=== PATIENT | female | born 1990 | race Caucasian/White ===

== ENCOUNTER 2018-08-13 05:22 | Emergency (ER) | payer MEDICAID, OTHER ==
[~2018-08-13] VITALS: Ht 165.1 cm; Wt 54.5 kg
[~2018-08-13 05:22] MED LIST: TRUVTAB PO
[2018-08-13 05:33] VITALS: BP 102/67
== END 2018-08-13 06:01 | disposition home or self-care (01) ==
LOC: M ED 05:22
DX: T18.8XXA Foreign body in other parts of alimentary tract, initial encounter (principal); X58.XXXA Exposure to other specified factors, initial encounter; Y92.89 Other specified places as the place of occurrence of the external cause; F17.210 Nicotine dependence, cigarettes, uncomplicated

== ENCOUNTER → 2019-08-21 | Outpatient (REF) | payer OTHER ==
[2019-08-21 19:20] LABS: HEMATOCRIT 39.2 % (36.0-47.0); HEMOGLOBIN 13.1 g/dl (12.0-15.5); MEAN CORPUSCULAR HGB CONC 33.4 g/dl (32.0-36.5); MEAN CORPUSCULAR VOLUME 89.7 fl (80.0-96.0); PLATELET COUNT, AUTOMATED 334 10^3/uL (150-450); RED BLOOD COUNT 4.37 10^6/uL (4.00-5.40); WHITE BLOOD COUNT 6.7 10^3/uL (4.0-10.0)
[2019-08-21 19:50] LABS: HEMOGLOBIN A1c 5.5 %
[2019-08-21 19:53] LABS: CHLAMYDIA DNA AMPLIFICATION NEGATIVE (NEGATIVE); GC DNA AMPLIFICATION POSITIVE (NEGATIVE)
[2019-08-21 20:03] LABS: ALBUMIN 3.7 GM/DL (3.2-5.2); ALT/SGPT 31 U/L (12-78); BILIRUBIN,TOTAL 0.2 MG/DL (0.2-1.0); BLOOD UREA NITROGEN 10 MG/DL (7-18); CARBON DIOXIDE LEVEL 29 MEQ/L (21-32); CHLORIDE LEVEL 108 MEQ/L (98-107); CHOLESTEROL LEVEL 109 MG/DL (<200); CHOLESTEROL RISK RATIO 2.794 (<5); CREATININE FOR GFR 0.73 MG/DL (0.55-1.30); FREE T4 0.97 NG/DL (0.76-1.46); GLOMERULAR FILTRATION RATE > 60.0 (>60); GLUCOSE, FASTING 81 MG/DL (70-100); HCG, SERUM QUANTITATIVE 20 MIU/ML; HDL CHOLESTEROL 39 MG/DL (>40); LDL CHOLESTEROL 59 MG/DL (<100); NON-HDL-C 70 MG/DL; POTASSIUM SERUM 4.1 MEQ/L (3.5-5.1); SODIUM LEVEL 139 MEQ/L (136-145); THYROID STIMULATING HORMONE 0.795 uIU/ML (0.358-3.740); TRIGLYCERIDES LEVEL 57 MG/DL (<150)
[2019-08-21 21:19] LABS: HCG, SERUM QUALITATIVE POSITIVE (NEGATIVE)
[2019-08-23 09:21] LABS: HIV 1&2 SCREEN CENTAUR NEGATIVE (NEGATIVE)
== END ==
LOC: M SFHCPLAZ 14:34
PROVIDERS: ATTEND Physician Assistant
DX: Z32.00 Encounter for pregnancy test, result unknown (principal); Z20.2 Contact with and (suspected) exposure to infections with a predominantly sexual mode of transmission; Z00.00 Encounter for general adult medical examination without abnormal findings; Z13.29 Encounter for screening for other suspected endocrine disorder; Z13.220 Encounter for screening for lipoid disorders; F17.210 Nicotine dependence, cigarettes, uncomplicated; Z13.1 Encounter for screening for diabetes mellitus

== ENCOUNTER → 2019-08-29 | Outpatient (REF) | payer OTHER | LOC: M SFHCPLAZ 13:26 | PROVIDERS: ATTEND Physician Assistant | DX: Z32.01 Encounter for pregnancy test, result positive (principal) ==

== ENCOUNTER → 2020-06-10 | Outpatient (REF) | payer OTHER | LOC: M WUC 09:35 | PROVIDERS: ATTEND Physician Assistant | DX: J02.9 Acute pharyngitis, unspecified (principal) ==

== ENCOUNTER 2021-07-24 18:20 | Inpatient (IN) | payer OTHER ==
[~2021-07-24] VITALS: Ht 160 cm; Wt 55.8 kg
[~2021-07-24 18:20] MED LIST changes: +EMTR1TAB16 PO; -TRUVTAB PO
[2021-07-24] MEDS ORDERED: CITA20TA6 (18:26)
[2021-07-24] MEDS ORDERED: QUET100T2 (18:26)
[2021-07-24] MEDS ORDERED: BUPR1SUB5 (18:26)
[2021-07-24] MEDS ORDERED: ETHY1TAB6 (18:26)
[2021-07-24 19:37] LABS: BASO % 0.4 % (0.0-1.0); EOS % 0.3 % (0.0-3.0); HEMATOCRIT 38.7 % (36.0-47.0); HEMOGLOBIN 13.4 g/dl (12.0-15.5); LYMPH # 1.7 10^3/uL (1.5-5.0); LYMPH % 15.6 % (24.0-44.0); MEAN CORPUSCULAR HEMOGLOBIN 30.5 pg (27.0-33.0); MEAN CORPUSCULAR HGB CONC 34.6 g/dl (32.0-36.5); MEAN CORPUSCULAR VOLUME 88.2 fl (80.0-96.0); MONO # 0.5 10^3/uL (0.0-0.8); MONO % 4.4 % (2.0-8.0); NEUTROPHILS # 8.4 10^3/uL (1.5-8.5); NEUTROPHILS % 78.9 % (36.0-66.0); PLATELET COUNT, AUTOMATED 301 10^3/uL (150-450); RED BLOOD COUNT 4.39 10^6/uL (4.00-5.40); WHITE BLOOD COUNT 10.6 10^3/uL (4.0-10.0)
[2021-07-24 20:06] LABS: HCG, SERUM QUALITATIVE NEGATIVE (NEGATIVE)
[2021-07-24 20:07] LABS: ALBUMIN 3.6 GM/DL (3.2-5.2); ALT/SGPT 42 U/L (12-78); AMYLASE 34 U/L (25-115); BILIRUBIN,DIRECT 0.5 MG/DL (0.0-0.2); BILIRUBIN,TOTAL 0.9 MG/DL (0.2-1.0); BLOOD UREA NITROGEN 10 MG/DL (7-18); CARBON DIOXIDE LEVEL 27 MEQ/L (21-32); CHLORIDE LEVEL 107 MEQ/L (98-107); CREATININE FOR GFR 0.78 MG/DL (0.55-1.30); GLOMERULAR FILTRATION RATE > 60.0 (>60); GLUCOSE, FASTING 104 MG/DL (70-100); LIPASE 74 U/L (73-393); POTASSIUM SERUM 4.1 MEQ/L (3.5-5.1); SODIUM LEVEL 141 MEQ/L (136-145); TOTAL PROTEIN 7.2 GM/DL (6.4-8.2)
[2021-07-24] MEDS ORDERED: PANTOPRAZOLE 40MG VIAL IV ONE (21:30)
[2021-07-24] MEDS ORDERED: GI COCKTAIL 50ML BTL(HYOSCYAMINE/MAALOX/LIDOCAINE VISCOUS)(1:3:1) PO ONE (21:30)
[2021-07-24] MEDS ORDERED: SUCRALFATE 1 GM TAB PO ONE (21:30)
[2021-07-24] MEDS ORDERED: ISOVUE-370 76% 100ML VIAL As Ordered ONE (21:35)
[2021-07-24] MEDS ORDERED: ONDANSETRON 4MG/2ML VIAL IV ONE (21:50)
[2021-07-24] MEDS ORDERED: KETOROLAC 30 MG/ML 1ML VIAL IV ONE (23:00)
[2021-07-25] MEDS ORDERED: PIPERACILLIN/TAZOBACTAM SOD 3.375 GM in D5W MINI-BAG PLUS 50 ML IV ONE ×2
[2021-07-25 00:40] LABS: RSV AMPLIFICATION NEGATIVE (NEGATIVE)
[2021-07-25] MEDS ORDERED: MAALOX 30 ML SUSP *UDC PO PRN (00:40)
[2021-07-25] MEDS ORDERED: MORPHINE 2 MG/ML 1ML VIAL IV PRN (00:40)
[2021-07-25] MEDS ORDERED: ACETAMINOPHEN TAB 650MG DOSE (2X325MG) PO PRN (00:40)
[2021-07-25] MEDS ORDERED: MOM 30ML SUSPENSION UDC PO PRN (00:40)
[2021-07-25] MEDS: NS 1,000 ML IV SCH ×3 (01:35→18:38)
[2021-07-25] MEDS ORDERED: QUET100T2 PO (01:40)
[2021-07-25] MEDS ORDERED: CITA20TA7 PO (01:40)
[2021-07-25] MEDS ORDERED: SUBO8MIS SL (01:40)
[2021-07-25] MEDS ORDERED: HOME MED LIST COMPLETE! XX SCH (01:40)
[2021-07-25 01:53] LABS: BASO % 0.4 % (0.0-1.0); EOS % 0.3 % (0.0-3.0); HEMATOCRIT 34.5 % (36.0-47.0); HEMOGLOBIN 11.9 g/dl (12.0-15.5); LYMPH # 1.7 10^3/uL (1.5-5.0); LYMPH % 17.7 % (24.0-44.0); MEAN CORPUSCULAR HEMOGLOBIN 30.4 pg (27.0-33.0); MEAN CORPUSCULAR HGB CONC 34.5 g/dl (32.0-36.5); MEAN CORPUSCULAR VOLUME 88.2 fl (80.0-96.0); MONO # 0.6 10^3/uL (0.0-0.8); MONO % 6.4 % (2.0-8.0); NEUTROPHILS # 7.4 10^3/uL (1.5-8.5); NEUTROPHILS % 74.9 % (36.0-66.0); PLATELET COUNT, AUTOMATED 235 10^3/uL (150-450); RED BLOOD COUNT 3.91 10^6/uL (4.00-5.40); WHITE BLOOD COUNT 9.8 10^3/uL (4.0-10.0)
[2021-07-25] MEDS: NORCO, ANEXSIA 5/325MG TABLET (HYDROcodone/ACETAMINOPHEN) PO PRN ×4 (02:27→18:38)
[2021-07-25 02:30] LABS: ALBUMIN 3.1 GM/DL (3.2-5.2); ALT/SGPT 212 U/L (12-78); BILIRUBIN,DIRECT 0.9 MG/DL (0.0-0.2); BILIRUBIN,TOTAL 2.1 MG/DL (0.2-1.0); BLOOD UREA NITROGEN 9 MG/DL (7-18); CALCIUM LEVEL 9.2 MG/DL (8.5-10.1); CARBON DIOXIDE LEVEL 23 MEQ/L (21-32); CHLORIDE LEVEL 109 MEQ/L (98-107); CREATININE FOR GFR 0.76 MG/DL (0.55-1.30); GLOMERULAR FILTRATION RATE > 60.0 (>60); GLUCOSE, FASTING 122 MG/DL (70-100); POTASSIUM SERUM 4.1 MEQ/L (3.5-5.1); SODIUM LEVEL 140 MEQ/L (136-145); TOTAL PROTEIN 6.3 GM/DL (6.4-8.2)
[2021-07-25 02:49] VITALS: BP 91/65
[2021-07-25] MEDS: PIPERACILLIN/TAZOBACTAM SOD 4.5 GM in D5W MINI-BAG PLUS 50 ML IV SCH ×3 (05:50→18:38)
[2021-07-25 05:54] VITALS: BP 92/58
[2021-07-25] MEDS ORDERED: LR 1,000 ML IV SCH (07:55)
[2021-07-25] MEDS ORDERED: ISOVUE-300 61% 50ML VIAL As Ordered ONE (14:53)
[2021-07-25] MEDS ORDERED: MIDAZOLAM INJ 2MG/2ML VIAL (J2250 PER 1MG) As Ordered ONE (16:21)
[2021-07-25] MEDS ORDERED: LIDOCAINE 2% 100MG/5ML SDV (FOR ANES.) As Ordered ONE (16:21)
[2021-07-25] MEDS ORDERED: SUCCINYLCHOLINE 100 MG/5 ML SYRINGE (J0330) As Ordered ONE (16:21)
[2021-07-25] MEDS ORDERED: propofoL 200 MG/20 ML VIAL As Ordered ONE (16:21)
[2021-07-25] MEDS ORDERED: ONDANSETRON 4MG/2ML VIAL As Ordered ONE (16:21)
[2021-07-25] MEDS ORDERED: fentaNYL 100 MCG/2 ML INJECTION As Ordered ONE (16:21)
[2021-07-25] MEDS ORDERED: dexameTHASONE 4 MG/ML 1ML VIAL (J1100 PER 1MG) As Ordered ONE ×2 (16:21→16:35)
[2021-07-25] MEDS ORDERED: ROCURONIUM BROMIDE 50 MG/5 ML VIAL As Ordered ONE (16:21)
[2021-07-25] MEDS ORDERED: SUGAMMADEX SODIUM 500 MG/5 ML VIAL (BRIDION) As Ordered ONE (16:26)
[2021-07-25] MEDS ORDERED: KETOROLAC 60MG 2ML VIAL As Ordered ONE (16:28)
[2021-07-25] MEDS ORDERED: GLUCAGON INJ 1MG VIAL As Ordered ONE (16:33)
[2021-07-25] MEDS ORDERED: HYDROMORPHONE HCL 0.5 MG/ 0.5 ML SYRINGE (J1170 PER 1) IV PRN (17:00)
[2021-07-25] MEDS ORDERED: METOCLOPRAMIDE INJ 10MG/2ML VIAL (J2765 PER 1) IV PRN (17:00)
[2021-07-25] MEDS ORDERED: INSULIN LISPRO (NovoLOG) PER UNIT SC PRN (17:00)
[2021-07-25] MEDS ORDERED: fentaNYL 100 MCG/2 ML INJECTION IV PRN (17:00)
[2021-07-25] MEDS ORDERED: ONDANSETRON 4MG/2ML VIAL IV PRN (17:00)
[2021-07-25] MEDS ORDERED: GLYCOPYRROLATE INJ 0.2 MG/ML 2 ML VIAL As Ordered ONE (17:11)
[2021-07-25] MEDS: LR 1,000 ML IV SCH ×2 (17:39→18:39)
[2021-07-25 18:00] VITALS: BP 135/84
[2021-07-25 18:30] VITALS: BP 115/70
[2021-07-25 19:24] VITALS: BP 101/59
[2021-07-25 19:58] VITALS: BP 104/59
[2021-07-26] MEDS: PIPERACILLIN/TAZOBACTAM SOD 4.5 GM in D5W MINI-BAG PLUS 50 ML IV SCH ×3 (00:52→12:47)
[2021-07-26 01:18] VITALS: BP 98/58
[2021-07-26] MEDS: NS 1,000 ML IV SCH ×2 (05:19→12:13)
[2021-07-26 06:06] VITALS: BP 95/61
[2021-07-26] MEDS: NORCO, ANEXSIA 5/325MG TABLET (HYDROcodone/ACETAMINOPHEN) PO PRN (06:19)
[2021-07-26 10:00] VITALS: BP 112/63
[2021-07-26 10:00] LABS: HEMATOCRIT 34.1 % (36.0-47.0); HEMOGLOBIN 11.8 g/dl (12.0-15.5); MEAN CORPUSCULAR HEMOGLOBIN 30.8 pg (27.0-33.0); MEAN CORPUSCULAR HGB CONC 34.6 g/dl (32.0-36.5); PLATELET COUNT, AUTOMATED 279 10^3/uL (150-450); RED BLOOD COUNT 3.83 10^6/uL (4.00-5.40); WHITE BLOOD COUNT 9.7 10^3/uL (4.0-10.0)
[2021-07-26 10:47] LABS: ALBUMIN 3.2 GM/DL (3.2-5.2); ALT/SGPT 179 U/L (12-78); BILIRUBIN,DIRECT 0.6 MG/DL (0.0-0.2); BLOOD UREA NITROGEN 13 MG/DL (7-18); CALCIUM LEVEL 8.1 MG/DL (8.5-10.1); CARBON DIOXIDE LEVEL 25 MEQ/L (21-32); CHLORIDE LEVEL 111 MEQ/L (98-107); GLOMERULAR FILTRATION RATE > 60.0 (>60); GLUCOSE, FASTING 131 MG/DL (70-100); POTASSIUM SERUM 4.2 MEQ/L (3.5-5.1); SODIUM LEVEL 139 MEQ/L (136-145)
[2021-07-26] MEDS ORDERED: CEFU50TA PO (12:47)
[2021-07-26] MEDS ORDERED: METR-265 PO (12:47)
== END 2021-07-26 14:10 | disposition home or self-care (01) ==
LOC: M ED 18:20 → M ED INP 07-25 00:39 → ENRESERV 07-25 02:25 → M MS5PR 07-25 02:46
PROVIDERS: ADMIT Family Medicine; ATTEND Internal Medicine
PROC: 0F798DZ Dilation of Common Bile Duct with Intraluminal Device, Via Natural or Artificial Opening Endoscopic (ICD-10-PCS; 2021-07-25)
PROC: 0FC98ZZ Extirpation of Matter from Common Bile Duct, Via Natural or Artificial Opening Endoscopic (ICD-10-PCS; principal; 2021-07-25 14:30)
DX: K80.62 Calculus of gallbladder and bile duct with acute cholecystitis without obstruction (principal); F17.200 Nicotine dependence, unspecified, uncomplicated; N92.5 Other specified irregular menstruation; Z79.899 Other long term (current) drug therapy

== ENCOUNTER → 2021-08-08 | Outpatient (CLI) | payer OTHER ==
[~2021-08-08] MED LIST changes: +BUPR1SUB5; +CEFU50TA PO; +CITA20TA6; +CITA20TA7 PO; +ETHY1TAB6; +METR-265 PO; +QUET100T2; +QUET100T2 PO; +SUBO8MIS SL
[2021-08-08 12:24] LABS: HEMATOCRIT 40.8 % (36.0-47.0); MEAN CORPUSCULAR HEMOGLOBIN 30.1 pg (27.0-33.0); MEAN CORPUSCULAR HGB CONC 34.3 g/dl (32.0-36.5); MEAN CORPUSCULAR VOLUME 87.7 fl (80.0-96.0); PLATELET COUNT, AUTOMATED 361 10^3/uL (150-450); RED BLOOD COUNT 4.65 10^6/uL (4.00-5.40); WHITE BLOOD COUNT 6.8 10^3/uL (4.0-10.0)
[2021-08-08 12:59] LABS: ALBUMIN 3.7 GM/DL (3.2-5.2); ALT/SGPT 40 U/L (12-78); BILIRUBIN,TOTAL 0.4 MG/DL (0.2-1.0); BLOOD UREA NITROGEN 7 MG/DL (7-18); CALCIUM LEVEL 10.3 MG/DL (8.5-10.1); CARBON DIOXIDE LEVEL 32 MEQ/L (21-32); CHLORIDE LEVEL 104 MEQ/L (98-107); GLOMERULAR FILTRATION RATE > 60.0 (>60); GLUCOSE, FASTING 111 MG/DL (70-100); SODIUM LEVEL 141 MEQ/L (136-145); TOTAL PROTEIN 7.1 GM/DL (6.4-8.2)
== END ==
LOC: M LAB 11:57
PROVIDERS: ATTEND Surgery
DX: K80.51 Calculus of bile duct without cholangitis or cholecystitis with obstruction (principal)

== ENCOUNTER 2021-08-27 10:37 | Day surgery (SDC) | payer OTHER ==
[~2021-08-27] VITALS: Ht 167.6 cm; Wt 52.5 kg
[~2021-08-27 10:37] MED LIST changes: +BUPIVACAINE/EPIN 0.25% 30 ML VIAL As Ordered ONE; +GLUCAGON INJ 1MG VIAL As Ordered ONE; +ISOVUE-300 61% 50ML VIAL As Ordered ONE; +KETOROLAC 60MG 2ML VIAL As Ordered ONE; +LIDOCAINE 2% 100MG/5ML SDV (FOR ANES.) As Ordered ONE; +MIDAZOLAM INJ 2MG/2ML VIAL (J2250 PER 1MG) As Ordered ONE; +ONDANSETRON 4MG 2ML VIAL As Ordered ONE; +ROCURONIUM BROMIDE 50 MG/5 ML VIAL As Ordered ONE; +SEVOFLURANE INHAL SOLN 250 ML BTL As Ordered ONE; +ceFAZolin SOD 2 GM in IV 1 EA IV ONE; +dexameTHASONE 4 MG/ML 1ML VIAL (J1100 PER 1MG) As Ordered ONE; +fentaNYL 250 MCG/5 ML INJECTION As Ordered ONE; +propofoL 200 MG/20 ML VIAL As Ordered ONE
[2021-08-27] MEDS ORDERED: LR 1,000 ML IV SCH ×2 (11:00→14:10)
[2021-08-27] MEDS ORDERED: PREGABALIN 25 MG CAP (LYRICA) PO ONE (12:15)
[2021-08-27] MEDS ORDERED: GLYCOPYRROLATE INJ 0.2 MG/ML 2 ML VIAL As Ordered ONE (12:18)
[2021-08-27] MEDS ORDERED: ePHEDrine SULFATE 25 MG/5 ML(5MG/ML) SYRINGE As Ordered ONE (12:37)
[2021-08-27] MEDS ORDERED: ACETAMINOPHEN 1000MG 100ML IV BTL (OFIRMEV) (J0131 PER 10MG) As Ordered ONE (12:51)
[2021-08-27] MEDS ORDERED: SUGAMMADEX SODIUM 500 MG/5 ML VIAL (BRIDION) As Ordered ONE (12:51)
[2021-08-27] MEDS ORDERED: BUPIVACAINE LIPOSOME/PF 1.3% 20ML VIAL (13.3MG/ML)(EXPAREL) As Ordered ONE (13:52)
[2021-08-27] MEDS ORDERED: ONDANSETRON 4MG 2ML VIAL IV PRN (14:10)
[2021-08-27] MEDS ORDERED: MEPERIDINE INJ 25 MG/ML VIAL (J2175) IV PRN (14:10)
[2021-08-27] MEDS ORDERED: fentaNYL 100 MCG/2 ML INJECTION IV PRN (14:10)
[2021-08-27] MEDS ORDERED: oxyCODONE 5MG TAB PO PRN (14:10)
[2021-08-27] MEDS ORDERED: HYDROMORPHONE HCL 0.5 MG/ 0.5 ML SYRINGE (J1170 PER 1) IV PRN (14:10)
[2021-08-27] MEDS ORDERED: METOCLOPRAMIDE INJ 10MG/2ML VIAL (J2765 PER 1) IV PRN (14:10)
[2021-08-27] MEDS ORDERED: KETOROLAC 30 MG/ML 1ML VIAL IV ONE (15:10)
[2021-08-27] MEDS ORDERED: KETOROLAC 30 MG/ML 1ML VIAL As Ordered ONE (15:12)
[2021-08-27] MEDS ORDERED: KETOROLAC 30 MG/ML 1ML VIAL IV PRN (15:20)
[2021-08-27] MEDS ORDERED: PERCOCET 5MG/325MG TAB PO PRN ×2 (15:30)
[2021-08-27] MEDS ORDERED: NS 1,000 ML IV SCH (15:35)
[2021-08-27 17:00] VITALS: BP 105/55
== END 2021-08-27 17:02 | disposition home or self-care (01) ==
LOC: M SDC 10:37
PROVIDERS: ATTEND Surgery
DX: K80.00 Calculus of gallbladder with acute cholecystitis without obstruction (principal); K66.0 Peritoneal adhesions (postprocedural) (postinfection); K82.8 Other specified diseases of gallbladder
CPT/HCPCS: 47562; 81025; 88304; C9290; J0131; J0690; J1100; J1885; J2250; J2405; J2765; J3010

== ENCOUNTER → 2021-11-05 | Outpatient (CLI) | payer OTHER ==
[~2021-11-05] MED LIST changes: -BUPIVACAINE/EPIN 0.25% 30 ML VIAL As Ordered ONE; +ETHY1TAB6 PO; -GLUCAGON INJ 1MG VIAL As Ordered ONE; -ISOVUE-300 61% 50ML VIAL As Ordered ONE; -KETOROLAC 60MG 2ML VIAL As Ordered ONE; -LIDOCAINE 2% 100MG/5ML SDV (FOR ANES.) As Ordered ONE; -MIDAZOLAM INJ 2MG/2ML VIAL (J2250 PER 1MG) As Ordered ONE; -ONDANSETRON 4MG 2ML VIAL As Ordered ONE; -ROCURONIUM BROMIDE 50 MG/5 ML VIAL As Ordered ONE; -SEVOFLURANE INHAL SOLN 250 ML BTL As Ordered ONE; -ceFAZolin SOD 2 GM in IV 1 EA IV ONE; -dexameTHASONE 4 MG/ML 1ML VIAL (J1100 PER 1MG) As Ordered ONE; -fentaNYL 250 MCG/5 ML INJECTION As Ordered ONE; -propofoL 200 MG/20 ML VIAL As Ordered ONE
== END ==
LOC: M LABSMTC 09:30
PROVIDERS: ATTEND Anesthesiology
DX: Z01.812 Encounter for preprocedural laboratory examination (principal); Z11.52 Encounter for screening for COVID-19

== ENCOUNTER 2021-11-07 10:05 | Day surgery (SDC) | payer OTHER ==
[~2021-11-07] VITALS: Ht 167.6 cm; Wt 52.3 kg
[~2021-11-07 10:05] MED LIST changes: +NS 1,000 ML IV ONE
[2021-11-07] MEDS ORDERED: LR 1,000 ML IV SCH ×2 (10:20→12:55)
[2021-11-07] MEDS ORDERED: ISOVUE-300 61% 50ML VIAL As Ordered ONE (11:37)
[2021-11-07] MEDS ORDERED: fentaNYL 100 MCG/2 ML INJECTION As Ordered ONE (12:21)
[2021-11-07] MEDS ORDERED: MIDAZOLAM INJ 2MG/2ML VIAL (J2250 PER 1MG) As Ordered ONE (12:21)
[2021-11-07] MEDS ORDERED: dexameTHASONE 4 MG/ML 1ML VIAL (J1100 PER 1MG) As Ordered ONE (12:22)
[2021-11-07] MEDS ORDERED: propofoL 200 MG/20 ML VIAL As Ordered ONE (12:22)
[2021-11-07] MEDS ORDERED: ROCURONIUM BROMIDE 50 MG/5 ML VIAL As Ordered ONE (12:22)
[2021-11-07] MEDS ORDERED: LIDOCAINE 2% 100MG/5ML SDV (FOR ANES.) As Ordered ONE (12:22)
[2021-11-07] MEDS ORDERED: ONDANSETRON 4MG 2ML VIAL As Ordered ONE (12:22)
[2021-11-07] MEDS ORDERED: ACETAMINOPHEN 1000MG 100ML IV BTL (OFIRMEV) (J0131 PER 10MG) As Ordered ONE (12:24)
[2021-11-07] MEDS ORDERED: SUGAMMADEX SODIUM 500 MG/5 ML VIAL (BRIDION) As Ordered ONE (12:46)
[2021-11-07] MEDS ORDERED: MORPHINE 2 MG/ML 1ML VIAL IV PRN (12:55)
[2021-11-07] MEDS ORDERED: fentaNYL 100 MCG/2 ML INJECTION IV PRN (12:55)
[2021-11-07] MEDS ORDERED: ONDANSETRON 4MG 2ML VIAL IV PRN (12:55)
[2021-11-07] MEDS ORDERED: oxyCODONE 5MG TAB PO PRN (12:55)
[2021-11-07 13:59] VITALS: BP 114/63
== END 2021-11-07 14:15 | disposition home or self-care (01) ==
LOC: M SDC 10:05
PROVIDERS: ATTEND Internal Medicine Gastroenterology
DX: Z46.59 Encounter for fitting and adjustment of other gastrointestinal appliance and device (principal); K80.50 Calculus of bile duct without cholangitis or cholecystitis without obstruction; Z79.891 Long term (current) use of opiate analgesic; F19.11 Other psychoactive substance abuse, in remission; Z79.899 Other long term (current) drug therapy; F17.210 Nicotine dependence, cigarettes, uncomplicated
CPT/HCPCS: 43264; 43275; 74330; 81025; C1769; J0131; J1100; J2250; J2405; J3010; Q9967

== ENCOUNTER → 2022-01-23 | Outpatient (CLI) | payer OTHER ==
[~2022-01-23] MED LIST changes: -NS 1,000 ML IV ONE
[2022-01-23 15:01] LABS: ALBUMIN 3.6 G/DL (3.2-5.2); BILIRUBIN,DIRECT 0.2 MG/DL (<0.4); BILIRUBIN,TOTAL 0.6 MG/DL (0.3-1.2); TOTAL PROTEIN 6.5 G/DL (5.7-8.2)
== END ==
LOC: M LAB 14:00
PROVIDERS: ATTEND Internal Medicine Gastroenterology
DX: K80.51 Calculus of bile duct without cholangitis or cholecystitis with obstruction (principal)

== ENCOUNTER → 2022-01-26 | Outpatient (CLI) | payer OTHER | LOC: M PLAIMG 07:04 | PROVIDERS: ATTEND Internal Medicine Gastroenterology | DX: K80.51 Calculus of bile duct without cholangitis or cholecystitis with obstruction (principal) ==

== ENCOUNTER → 2022-09-16 | Outpatient (REF) | payer OTHER | LOC: M SFHCADAM 11:06 | PROVIDERS: ATTEND Physician Assistant | DX: R10.13 Epigastric pain (principal) ==

== ENCOUNTER → 2024-05-01 | Outpatient (REF) | payer OTHER ==
[2024-05-01 15:29] LABS: BASO # 0.1 10^3/uL (0.0-0.2); BASO % 0.7 % (0.0-1.0); EOS # 0.2 10^3/uL (0.0-0.5); EOS % 2.2 % (0.0-3.0); HEMOGLOBIN 13.7 g/dl (12.0-15.5); LYMPH # 2.4 10^3/uL (1.5-5.0); LYMPH % 32.7 % (24.0-44.0); MEAN CORPUSCULAR HEMOGLOBIN 31.2 pg (27.0-33.0); MEAN CORPUSCULAR HGB CONC 33.4 g/dl (32.0-36.5); MEAN CORPUSCULAR VOLUME 93.4 fl (80.0-96.0); MONO # 0.6 10^3/uL (0.0-0.8); MONO % 7.9 % (2.0-8.0); NEUTROPHILS # 4.1 10^3/uL (1.5-8.5); NEUTROPHILS % 56.2 % (36.0-66.0); PLATELET COUNT, AUTOMATED 281 10^3/uL (150-450); RED BLOOD COUNT 4.39 10^6/uL (4.00-5.40); WHITE BLOOD COUNT 7.3 10^3/uL (4.0-10.0)
[2024-05-01 15:30] LABS: LIPASE 29 U/L (12-53)
[2024-05-01 15:32] LABS: AMYLASE 49 U/L (30-118)
[2024-05-01 15:33] LABS: ALBUMIN 3.7 G/DL (3.2-5.2); ALKALINE PHOSPHATASE 59 U/L (35-104); ALT/SGPT 23 U/L (7.0-40); AST/SGOT 24 U/L (<34); BILIRUBIN,TOTAL 0.7 MG/DL (0.3-1.2); BLOOD UREA NITROGEN 8 MG/DL (9-23); CALCIUM LEVEL 8.8 MG/DL (8.5-10.1); CARBON DIOXIDE LEVEL 27 MMOL/L (20-31); CHLORIDE LEVEL 108 MMOL/L (98-107); CREATININE FOR GFR 0.74 MG/DL (0.55-1.30); GLOMERULAR FILTRATION RATE > 60.0 (>60); GLUCOSE, FASTING 81 MG/DL (60-100); POTASSIUM SERUM 4.2 MMOL/L (3.5-5.1); SODIUM LEVEL 143 MMOL/L (136-145); TOTAL PROTEIN 6.5 G/DL (5.7-8.2)
== END ==
LOC: M SFHCADAM 10:34
PROVIDERS: ATTEND Physician Assistant
DX: R10.13 Epigastric pain (principal)

== ENCOUNTER → 2024-05-16 | Outpatient (CLI) | payer OTHER | LOC: M ADAMS 10:38 | PROVIDERS: ATTEND Physician Assistant | DX: M79.671 Pain in right foot (principal) ==